=== PATIENT | male | born 1995 | race Caucasian/White ===

== ENCOUNTER 2022-04-30 09:07 | Emergency (ER) | payer OTHER, SELFPAY ==
[2022-04-30 09:16] VITALS: BP 132/84; PULSE 88; RESP 18; TEMP 36.6; O2SAT 99; BMI 21.4
--- NOTE | 2022-04-30 09:39 | ED_ITS ---
HPI - Eye Problem General Chief complaint: Eye Problems Stated complaint: FO in L eye Time Seen by Provider: 04/30/22 09:27 Source: patient Mode of arrival: ambulatory Limitations: no limitations History of Present Illness HPI Narrative: 26 y/o male presents to the ER for evaluation of a ?left eye foreign body x 1 week. 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 He attempted to remove the foreign body with an eye wash station, but reports that he feels as though the object is still in his eye. He states that he has had trouble seeing at nighttime since the incident. He also admits to having photophobia. Denies any eye discharge and itchiness. No other complaints or concerns at this time. MD chief complaint: eye pain, eye injury and foreign body Onset (ago): week(s) Onset description: sudden Duration: constant Location: left eye Eye Symptoms: redness, blurry vision and photophobia Place: work Mechanism: occurred while hammering/grinding Severity: moderate If Pain, Quality: aching Associated symptoms: none Treatments Prior to Arrival: none Related Data Patient tetanus UTD: No (Given tetanus immunization today.) Previous Rx's Medication Instructions Recorded sulfacetamide sodium 10 % eye drops 1 drp ophthalmic (eye) Q4H #15 mL 04/30/22 Allergies Allergy/AdvReac Type Severity Reaction Status Date / Time No Known Allergies Allergy Verified 04/30/22 09:28 Review of Systems Review of Systems: Yes all other systems are reviewed and are negative [facility] Social History Social History Advance Directives: No Advance Directives Information Provided: No Physical Exam Vital Signs: Vital Signs: Last Vital Signs Temp 98 F 04/30/22 09:16 Pulse 88 04/30/22 09:16 Resp 18 04/30/22 09:16 BP 132/84 04/30/22 09:16 Pulse Ox 99 04/30/22 09:16 O2 Del Method 04/30/22 09:16 BMI result Body Mass Index 21.4 Appearance: Alert. Oriented X3. No acute distress. HEENT: Left eye conjunctiva is injected with one visible punctate black foreign body noted overlying the iris at the 9 o'clock, with ?foreign body vs corneal abrasion at the 3 o'clock position. +Uptake of fluorescein over the iris at the 9 o'clock position post foreign body removal. No corneal ulcerations or rust rings visualized. EOMI, PERRL bilaterally. CVS: Normal heart rate and rhythm. Pulses normal. Respiratory: No respiratory distress. Skin: Skin warm and dry. Normal skin color. Normal skin turgor. No rashes. Extremities: Normal inspection x 4. Neuro: Oriented X 3. Medications Administered Discontinued Medications Generic Name Dose Route Start Last Admin Trade Name Freq PRN Reason Stop Dose Admin Diphtheria/Tetanus/Acell Pertussis 0.5 ml 04/30/22 10:07 04/30/22 10:12 Diphth,Pertus(Acell),Tet Adult 0.5 Ml Syringe IM 04/30/22 10:08 0.5 ml .ONCE ONE Administration Fluorescein Sodium 1 strip 04/30/22 09:28 04/30/22 10:13 Fluorescein Sodium Strip EYE-LEFT 04/30/22 09:29 1 strip ONCE ONE Administration Tetracaine HCl 1 drop 04/30/22 09:28 04/30/22 10:13 Tetracaine Hcl/Pf 0.5% Oph Grace 4 Ml Drops EYE-LEFT 04/30/22 09:29 1 drop ONCE ONE Administration Medical Decision Making Medical Decision Making MDM Narrative: 26 y/o M presenting today for evaluation of ?left eye foreign body x 1 week. Foreign body at 9 o'clock position removed with irrigation and needle. Foreign body vs corneal abrasion noted at the 3 o'clock position. Patient tolerated procedure well without any complications or concerns. Will cover patient with antibiotic drops and advised to follow up with ophthalmology in 1 week if symptoms do not improve. Tetanus immunization updated prior to discharge. Patient understands and agrees with plan. Differential Diagnosis Differential Diagnoses: The differential diagnosis associated with the presentation includes foreign body, corneal abrasion, iritis, conjunctivitis Prescription Management I considered prescription management with: Antibiotic Procedures FB Removal Eye Time Out performed: Yes Location: eye (L) Topical anesthetic used: tetracaine Foreign body: other (unknown) Evidence of corneal penetration: No Technique: irrigation, cotton tip swab and needle Procedure performed under: direct visualization with magnification Post-procedure medication: ophthalmic antibiotic (on discharge) and topical anesthetic Patient tolerated procedure: well Critical Care Time Critical Care Time Critical Care Time: No Discharge Plan Discharge Clinical Impression: Corneal abrasion, Foreign body in eye Patient Disposition: Home, Self-Care Instructions: Corneal Abrasion (ED), Eye Foreign Body (ED) Additional Instructions: Use full course of antibiotic eye drops for the next week. Do not rub your left eye. If your symptoms do not improve after one week, please follow up with the referred eye physician, call to make an appointment. If you develop new or worsening symptoms call 911 or come back to the ER for further evaluation. Prescriptions: New sulfacetamide sodium 10 % drops 1 drp ophthalmic (eye) Q4H Qty: 15 0RF Referrals: Rasta Deleon [Physician] - (Foreign body & Corneal abrasion L eye) Interventions: ED Discharge Assessment Last Done: 04/30/22 10:18 Discharge Date/Time: 04/30/22 10:18
[2022-04-30] MEDS: Diphth,Pertus(ACell),Tet Adult 0.5 ML SYRINGE IM (10:12)
[2022-04-30] MEDS: Fluorescein Sodium STRIP 1 STRIP EYE-LEFT (10:13)
[2022-04-30] MEDS: Tetracaine HCl/PF 0.5% Oph Sol 4 ML DROPS 1 DROP EYE-LEFT (10:13)
== END 2022-04-30 10:18 | disposition home or self-care (01) ==
PROVIDERS: Emergency Provider Emergency Medicine
DX: T15.02XA Foreign body in cornea, left eye, initial encounter (principal); S05.02XA Injury of conjunctiva and corneal abrasion without foreign body, left eye, initial encounter; W20.8XXA Other cause of strike by thrown, projected or falling object, initial encounter; Y93.H3 Activity, building and construction; Y92.89 Other specified places as the place of occurrence of the external cause; Y99.0 Civilian activity done for income or pay
CPT/HCPCS: 65220; 90471; 90715; 99282; 99284

== ENCOUNTER 2022-05-03 21:19 | Emergency (ER) | payer OTHER, SELFPAY ==
--- NOTE | ~2022-05-03 | XR_ITS ---
EXAMINATION: XR WRIST, LEFT XR HAND, LEFT CLINICAL INFORMATION: Injury. Pain. COMPARISON: None available. TECHNIQUE: 3 views of left hand and wrist. Cone-down lateral view of the left thumb FINDINGS: LEFT WRIST: The bones and soft tissues are normal. No fracture. Alignment is anatomic. Joint spaces are maintained. No erosions or soft tissue calcifications. LEFT HAND: There is fracture through the midshaft of the proximal phalanx of the left thumb. Fracture is comminuted. There is a fracture line extending longitudinally to the periarticular bone at the metacarpal phalangeal joint. There is dorsal angulation of the distal fracture fragment. No other fracture. No dislocation. XR/XR hand wrist LT IMPRESSION: 1. Normal left wrist. 2. Comminuted transverse fracture of the proximal phalanx of the thumb.
[2022-05-03 21:22] VITALS: BP 130/82; PULSE 74; RESP 18; TEMP 36.6; O2SAT 98; BMI 23.3
--- NOTE | 2022-05-03 22:20 | ED_ITS ---
HPI - Extremity Problem General Chief complaint: Extremity Injury, Upper Stated complaint: Hand swelling/ Work Inj Time Seen by Provider: 05/03/22 22:18 Source: patient Mode of arrival: ambulatory Limitations: no limitations History of Present Illness HPI Narrative: patient while at work got left hand jammed while unloading a truck and piece of wood fell on it a week ago at the significant swelling of the fingers have improved and have good movements patient still has swelling in the left thumb and difficult to move no other injuries Related Data Previous Rx's Medication Instructions Recorded sulfacetamide sodium 10 % eye drops 1 drp ophthalmic (eye) Q4H #15 mL 04/30/22 Allergies Allergy/AdvReac Type Severity Reaction Status Date / Time No Known Allergies Allergy Verified 05/03/22 21:24 Review of Systems Review of Systems: Yes all other systems are reviewed and are negative [facility] Social History Social History Advance Directives: No Physical Exam Vital Signs: Vital Signs: Last Vital Signs Temp 97.6 F 05/03/22 22:38 Pulse 80 05/03/22 22:38 Resp 16 05/03/22 22:38 BP 122/77 05/03/22 22:38 Pulse Ox 96 05/03/22 22:38 O2 Del Method 05/03/22 22:38 BMI result Body Mass Index 23.3 Const: General: healthy appearing, comfortable and no acute distress Extrem: Hand/finger images: 1. Swelling at the proximal phalanx nontender limited range of flexion because of swelling normal strength neurovascular intact Medical Decision Making Medical Decision Making MDM Narrative: Patient left thumb contusion x-ray positive of proximal left thumb fracture vane ent has good strength but limited range of movement in his left thumb because of swelling. Although no significant pain, patient advised to follow orthopedic patient left without the thumb spica splint advised to come back patient was called home to come back to the ER for the splint Radiology Impression Discussion of test interpretation with radiology: I have reviewed the radiologist's reading. Radiologist Impression: XR/XR hand wrist LT IMPRESSION: 1.? Normal left wrist. 2.? Comminuted transverse fracture of the proximal phalanx of the thumb. Discharge Plan Discharge Clinical Impression: Fracture of thumb, left, closed, Contusion of left thumb Patient Disposition: Home, Self-Care Additional Instructions: Thumb spica splint as prescribed Follow-up with orthopedics as advised Prescriptions: No Action sulfacetamide sodium 10 % drops 1 drp ophthalmic (eye) Q4H Qty: 15 0RF Referrals: Solitario Narvaez MD [Physician] - 3 days Interventions: ED Discharge Assessment Last Done: 05/03/22 22:44 Discharge Date/Time: 05/03/22 22:45
[2022-05-03 22:38] VITALS: BP 122/77; PULSE 80; RESP 16; TEMP 36.4; O2SAT 96
[2022-05-04 05:50] VITALS: BP 113/72; PULSE 78; RESP 16; TEMP 36.9; O2SAT 100
== END 2022-05-03 22:45 | disposition home or self-care (01) ==
PROVIDERS: Emergency Provider Internal Medicine
DX: S62.502A Fracture of unspecified phalanx of left thumb, initial encounter for closed fracture (principal); S60.012A Contusion of left thumb without damage to nail, initial encounter; M25.532 Pain in left wrist; Y29.XXXA Contact with blunt object, undetermined intent, initial encounter; Y93.9 Activity, unspecified; Y92.9 Unspecified place or not applicable; Y99.0 Civilian activity done for income or pay
CPT/HCPCS: 73110; 73130; 99282; 99283

== ENCOUNTER 2022-05-04 05:24 | Emergency (ER) | payer OTHER, SELFPAY ==
[2022-05-04 05:37] VITALS: BMI 23.3
--- NOTE | 2022-05-04 05:43 | ED.EXTPRO ---
HPI - Extremity Problem General Chief complaint: Extremity Injury, Upper Stated complaint: Hand pain Time Seen by Provider: 05/04/22 05:35 Source: patient Mode of arrival: ambulatory Limitations: no limitations History of Present Illness HPI Narrative: Patient called back to come to the ER for the splint placement for his left thumb fracture was seen few hours earlier as he got his left thumb jammed and piece of wood fell on it about 1 week ago at work Related Data Previous Rx's Medication Instructions Recorded sulfacetamide sodium 10 % eye drops 1 drp ophthalmic (eye) Q4H #15 mL 04/30/22 Allergies Allergy/AdvReac Type Severity Reaction Status Date / Time No Known Allergies Allergy Verified 05/03/22 21:24 Review of Systems Review of Systems: Yes all other systems are reviewed and are negative [facility] Social History Social History Advance Directives: No Physical Exam Vital Signs: Vital Signs: BMI result Body Mass Index 23.3 Extrem: Hand/finger images: 1. Swelling of the left thumb with limited range of movement neurovascular intact nontender Medical Decision Making Medical Decision Making MDM Narrative: Patient recalled to get the splint placed left thumb spica splint was placed advised to follow with orthopedic Procedures Orthopedic Splinting/Casting Injury #1: Side: left Upper Extremity Injury Location: hand Upper Extremity Immobilizer: thumb spica Discharge Plan Discharge Clinical Impression: Fracture of thumb, left, closed Patient Disposition: Home, Self-Care Instructions: Thumb Fracture (ED) Additional Instructions: With the splint as applied Follow-up with orthopedics Prescriptions: No Action sulfacetamide sodium 10 % drops 1 drp ophthalmic (eye) Q4H Qty: 15 0RF Referrals: Solitario Narvaez MD [Physician] - 3 days
--- NOTE | 2022-05-04 05:58 | PC.NURSE ---
pt returned to have sling placed upon being called back in
--- NOTE | 2022-05-04 05:59 | PC.NURSE ---
Discharge instructions given/explained to pt No apparent distress aox4 Ambulates safely/independently
== END 2022-05-04 06:04 | disposition home or self-care (01) ==
PROVIDERS: Emergency Provider Internal Medicine
DX: M79.642 Pain in left hand (principal); S62.512A Displaced fracture of proximal phalanx of left thumb, initial encounter for closed fracture; W20.8XXA Other cause of strike by thrown, projected or falling object, initial encounter; Y93.9 Activity, unspecified; Y92.69 Other specified industrial and construction area as the place of occurrence of the external cause; Y99.9 Unspecified external cause status
CPT/HCPCS: 29125; 99284

== ENCOUNTER 2022-05-05 14:38 | Outpatient (REF) | payer OTHER, SELFPAY ==
--- NOTE | ~2022-05-05 | XR_ITS ---
EXAMINATION: XR HAND, LEFT CLINICAL INFORMATION: Pain COMPARISON: Hand radiographs 05/03/2022 TECHNIQUE: 3 views of the hand FINDINGS: Redemonstration of a displaced fracture of the first proximal phalanx involving the mid diaphysis. No jocelynn bridging bony callus formation or periosteal reaction. Alignment is similar to prior. Joint spaces are maintained. Soft tissue swelling about the first digit. Soft tissues are unremarkable. XR/XR hand LT min 3V IMPRESSION: Redemonstration of a displaced fracture of the first proximal phalanx involving the mid diaphysis. No jocelynn bridging bony callus formation or periosteal reaction. Alignment is similar to prior. Soft tissue swelling about the first digit.
== END 2022-05-05 14:39 | disposition home or self-care (01) ==
LOC: HO.HOSX 14:38
PROVIDERS: Visit Provider Physician Assistant
DX: S62.502A Fracture of unspecified phalanx of left thumb, initial encounter for closed fracture (principal)
CPT/HCPCS: 73130; 99202

== ENCOUNTER 2022-05-07 07:43 | Day surgery (SDC) | payer OTHER, SELFPAY ==
--- NOTE | 2022-05-06 12:27 | P.CONAN_ITS ---
Documented by User: Salma Rizo NP 05/06/22 12:28 HPI - Anesthesia Eval Consult details Narrative: 26yo M for left thumb Finger Fx ORIF, closed vs open reduction [facility] Active Problems Active Problems: All Active Problems (Updated 05/05/22 @ 16:00 by Acacia Prabhakar) Fracture of phalanx of left thumb (Acute) Contusion of left thumb (Acute) Surgical History Surgical History (Updated 05/07/22 @ 07:48 by Adriana Walker) H/O elbow surgery Social History Social History (Updated 05/05/22 @ 15:41 by Nelsy Mcclain [facility]) Patient Tobacco Use Status: Former Tobacco user Tobacco use type: Cigarette Years Smoked: 6 Smoked in Last 30 Days: No Use of substances other than those prescribed or required for medical reasons: Yes Substance Use Frequency: Daily Are you DNR?: No Advance Directives: No Advance Directives Information Provided: Yes Current occupational status: employed Current occupation: [employer] Meds Allergies Allergy/AdvReac Type Severity Reaction Status Date / Time No Known Allergies Allergy Verified 05/07/22 07:49 Exam Exam Date and Time: May 06, 20221226 Assessment and Plan Assessment Anesthesia Assessment: Chart Reviewed Documented by User: April Toledo MD 05/07/22 10:55 HPI - Anesthesia Eval Consult details Narrative: 26yo M for left thumb Finger Fx ORIF, closed vs open reduction history of ketamine abuse, smoking and vaping u tox positive for marihuana last ketamine use per his report 2 weeks ago [facility] Family History Family history of problems with anesthesia: No Surgical History Surgical History (Updated 05/07/22 @ 07:48 by Adriana Walker) H/O elbow surgery History of Problems with Anesthesia: No Social History Social History (Updated 05/05/22 @ 15:41 by Nelsy Mcclain CMA) Patient Tobacco Use Status: Former Tobacco user Tobacco use type: Cigarette Years Smoked: 6 Smoked in Last 30 Days: No Use of substances other than those prescribed or required for medical reasons: Yes Substance Use Frequency: Daily Are you DNR?: No Advance Directives: No Advance Directives Information Provided: Yes Current occupational status: employed 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 Discussed Final Anesthetic Review Family History of Problems with Anesthesia: No History of Problems with Anesthesia: No ASA Class: II Final Preanesthetic Review: No Changes in Pt Med Stat, Meds/Allgs Chart Reviewed, Consent Obtained/Reviewed and Anes Risks/Benef Reviewed Patient Risk: Intermediate Procedure Risk: Low Anesthetic Plan Anesthetic Plan: GA Disposition: Standard PACU
--- NOTE | ~2022-05-07 | FL_ITS ---
EXAMINATION: XR FLUOROSCOPY WITH IMAGES CLINICAL INFORMATION: Fracture first proximal phalanx. Orthopedic reduction. COMPARISON: Radiographs left hand 05/05/2022. TECHNIQUE: Fluoroscopy Supervised By: Dr. Nadia Mcintyre. Fluoroscopy Time: 25 seconds. Cumulative Dose: 0.637 mGy. DAP: 0.0385 Gycm2. Images: 5. FINDINGS: There is a transverse fracture of first proximal phalanx at mid shaft. Fracture is reduced with 2 orthopedic pins. Fracture fragments are in near-anatomic alignment. Hardware intact. No dislocation. FL/FL guidance in OR IMPRESSION: Status post open reduction internal fixation first proximal phalanx fracture.
[2022-05-07 07:49] VITALS: BMI 23.3
[2022-05-07 08:07] VITALS: BP 115/67; PULSE 77; RESP 16; TEMP 37.2; O2SAT 99
[2022-05-07] MEDS: Lactated Ringers 1,000 ML 100 ML IVCONT (08:17)
[2022-05-07 09:57] LABS: Amphetamine Screen Urine Not Detected (Not Detect); Barbiturates, Urine Not Detected (Not Detect); Benzodiazepines Screen Urine Not Detected (Not Detect); Cannabinoid Screen Urine POSITIVE (Not Detect); Cocaine Screen Urine Not Detected (Not Detect); Fentanyl, urine Not Detected (Not Detect); Opiate Screen Urine Not Detected (Not Detect); Phencyclidine Screen Urine Not Detected (Not Detect)
--- NOTE | 2022-05-07 10:05 | MHC.SHP ---
Pre-Procedural Eval Section A Date of Service: 05/07/22 The patient is an INPATIENT: No Changes since office visit: No Cold of Flu in the past 2 weeks, No New Medical Problems, No Changes in Medication and No Patient answered all questions The History & Physical has been completed within 30 days and I have reviewed it.: Yes Section B Chief Complaint: Left thumb proximal phalanx fracture Allergies: Allergies Allergy/AdvReac Type Severity Reaction Status Date / Time No Known Allergies Allergy Verified 05/07/22 07:49 Plan I have reviewed the history and physical and performed a pertinent physical examination on my patient. No changes have occurred unless specified. Time Spent With Patient Time: Total time managing care of this patient today ____ minutes.
--- NOTE | 2022-05-07 10:06 | W.PM.OPN ---
Operative Note Operative Note Date of Service: 05/07/22 Narrative: Operative Note Narrative: Preop diagnosis: 1. Left thumb proximal phalanx shaft fracture Postop diagnosis: Same Procedure: 1. left thumb proximal phalanx CRPP Surgeon: Nadia Mcintyre MD Anesthesia: General Anesthesia Findings: finger fracture Implants: 0.045 K-wires times 1, 0.054 K-wire x1 Tourniquet time: None EBL: Minimal Specimen: None Drains: None Complications: None Disposition: Brought to the recovery room in stable condition Plan: Follow-up in 10-14 days for a wound check, postop radiographs and for placement in a short-arm thumb spica cast or splint Anticipate K-wire removal in 4 weeks based on interval bony healing Educate the patient that full fracture healing anticipated in approximately 8-12 weeks. Indications: The patient is 26 years old with a left thumb proximal phalanx fracture . The risks and benefits of operative treatment, including but not limited to risk of damage to blood vessels, nerves, tendons, infection, recurrence, delayed or nonunion of fracture, persistent pain or numbness, incomplete resolution of preoperative symptoms, or need for further surgery were discussed with the patient and they wished to proceed with surgery. Procedure: Once consent was obtained patient was brought back to the operating suite and placed in the operating table in a supine position. Perioperative antibiotics and general anesthesia was administered by the anesthesia team. A tourniquet was applied to the proximal aspect of the left upper extremity and the limb was prepped and draped in a standard surgical fashion. Tourniquet was not inflated during the case. The FluoroScan was used during the case to assist with our fracture reduction and placement of all implants. Prior to reduction, he was noted to have a fracture through the shaft of the proximal phalanx that was apex volar and with at least 60-70 degrees of deformity. A closed reduction was performed on the patient's left thumb proximal phalanx fracture. I placed a 0.054 K-wire through the radial base of the left thumb proximal phalanx. Holding our proximal phalanx fracture in a reduced position, I then advanced the K-wire distally across the fracture site and into the distal aspect of the proximal phalanx. I then placed a 0.045 K-wire through the ulnar base of the proximal phalanx. This was similarly advanced distally across the fracture site and into the distal aspect of the proximal phalanx. Fracture alignment was assessed for both angular and rotational malalignment. Once satisfied with our fracture reduction and implant placement, the K-wires were bent and cut short and pin caps applied. Final fluoroscopic images were then obtained. The wounds were copiously irrigated with normal saline. a digital block was performed using some 0.5% plain ropivacaine. A Sterile dressing and Short-arm thumb spica splintextending to the forearm was applied. The patient appears to have tolerated the procedure well and with no complications. All digits were well vascularized at the conclusion of the case.
[2022-05-07 11:25] VITALS: BP 115/67; PULSE 82; RESP 13; TEMP 36.1; O2SAT 97
[2022-05-07 11:30] VITALS: BP 109/69; PULSE 70; RESP 14; O2SAT 97
[2022-05-07 11:35] VITALS: BP 107/65; PULSE 73; RESP 15; O2SAT 98
[2022-05-07 11:40] VITALS: BP 107/70; PULSE 71; RESP 16; TEMP 36.2; O2SAT 99
== END 2022-05-07 12:36 | disposition home or self-care (01) ==
PROVIDERS: Anesthesiology; Visit Provider Orthopaedic Surgery
PROC: (CPT 26727; principal; 2022-05-07 08:50)
DX: S62.512A Displaced fracture of proximal phalanx of left thumb, initial encounter for closed fracture (principal); R20.0 Anesthesia of skin; R20.2 Paresthesia of skin; W23.0XXA Caught, crushed, jammed, or pinched between moving objects, initial encounter; Y93.89 Activity, other specified; Y92.69 Other specified industrial and construction area as the place of occurrence of the external cause; Y99.0 Civilian activity done for income or pay; Z79.899 Other long term (current) drug therapy; F17.210 Nicotine dependence, cigarettes, uncomplicated; F12.90 Cannabis use, unspecified, uncomplicated
CPT/HCPCS: 26727; 80307; J0690; J1100; J1885; J2405; J2795; J3010

== ENCOUNTER 2022-05-20 10:18 | Outpatient (REF) | payer OTHER, SELFPAY ==
--- NOTE | ~2022-05-20 | XR_ITS ---
EXAMINATION: XR HAND, LEFT CLINICAL INFORMATION: Fracture COMPARISON: Previous x-ray most recent April 2022 TECHNIQUE: PA, lateral, and oblique views of the left hand. FINDINGS: There are 2 K wires or pins across the fracture of the proximal phalanx of the thumb. Hardware is similar to fluoroscopy exam. Fracture line still seen and alignment is unchanged. Minimal callus formation. Osteopenia. Soft tissue swelling. XR/XR hand LT min 3V IMPRESSION: ORIF of fracture of the proximal phalanx of the thumb.
== END 2022-05-20 10:19 | disposition home or self-care (01) ==
LOC: HO.HOSX 10:18
PROVIDERS: Visit Provider Orthopaedic Surgery
DX: S62.502D Fracture of unspecified phalanx of left thumb, subsequent encounter for fracture with routine healing (principal)
CPT/HCPCS: 73130

== ENCOUNTER 2022-06-08 13:38 | Outpatient (REF) | payer OTHER, SELFPAY | END 2022-06-08 13:39 | disposition home or self-care (01) | LOC: HO.HOSX 13:38 | PROVIDERS: Visit Provider Orthopaedic Surgery | DX: Z13.89 Encounter for screening for other disorder (principal) ==

== ENCOUNTER 2022-06-10 09:09 | Outpatient (REF) | payer OTHER, SELFPAY ==
--- NOTE | ~2022-06-10 | XR_ITS ---
EXAMINATION: XR HAND, LEFT CLINICAL INFORMATION: Left hand pain. COMPARISON: None available. TECHNIQUE: PA, lateral, and oblique views of the left hand. An indicator arrow points to the first digit. FINDINGS: 2 K wires are seen transfixing a fracture of the proximal phalanx of the first digit with good anatomic alignment. The remainder the digits are intact. The carpal bones are normally aligned. The distal radius and ulna are intact. There is mild to moderate soft tissue swelling in the first digit. XR/XR hand LT min 3V IMPRESSION: Mild to moderate soft tissue swelling in the first digit without acute underlying osseous or hardware abnormality. Overall good anatomic alignment with evidence for healing.
== END 2022-06-10 09:10 | disposition home or self-care (01) ==
LOC: HO.HOSX 09:09
PROVIDERS: Visit Provider Orthopaedic Surgery
DX: S62.502D Fracture of unspecified phalanx of left thumb, subsequent encounter for fracture with routine healing (principal)
CPT/HCPCS: 73130

== ENCOUNTER 2022-07-08 10:56 | Outpatient (REF) | payer OTHER, SELFPAY ==
--- NOTE | ~2022-07-08 | XR_ITS ---
EXAMINATION: XR HAND, LEFT CLINICAL INFORMATION: Fracture COMPARISON: Previous x-ray most recent 06/10/2022 TECHNIQUE: PA, lateral, and oblique views of the left hand. FINDINGS: The 2 K wires or pins in the thumb have been removed. There is a healing fracture of the proximal phalanx of the thumb. Alignment appears unchanged. No other fracture. Joint spaces are normal. Soft tissues are normal. XR/XR hand LT min 3V IMPRESSION: Healing fracture of the proximal phalanx of the thumb.
== END 2022-07-08 10:57 | disposition home or self-care (01) ==
LOC: HO.HOSX 10:56
PROVIDERS: Visit Provider Orthopaedic Surgery
DX: S62.502D Fracture of unspecified phalanx of left thumb, subsequent encounter for fracture with routine healing (principal); M79.642 Pain in left hand; X58.XXXD Exposure to other specified factors, subsequent encounter
CPT/HCPCS: 73130

== ENCOUNTER 2023-09-16 13:36 | Emergency (ER) | payer OTHER, SELFPAY ==
--- NOTE | ~2023-09-16 | XR_ITS ---
EXAMINATION: XR forearm RT 2V, XR humerus RT CLINICAL INFORMATION: Reason for Exam overlying cellulitis COMPARISON: None. TECHNIQUE: 2 view series right forearm; 2 view series right humerus FINDINGS: Right forearm: No fractures or erosive osseous lesions. Intact radial head. Soft tissue prominence along the dorsal aspect of the forearm. No soft tissue emphysematous changes. Right humerus: Focal soft tissue emphysematous changes and soft tissue prominence is present along the radial aspect of the arm adjacent to the distal one third of the humerus. The visualized right ribs and lung are normal in appearance. No erosive osseous lesions identified. No fractures noted. XR/XR humerus RT IMPRESSION: *Soft tissue inflammatory changes and soft tissue emphysema within the right upper extremity adjacent to the distal one third of the humerus. Additional soft tissue inflammatory changes without soft tissue emphysema are present along the dorsal aspect of the right forearm. No embedded radiopaque foreign bodies. No findings suspicious for osteomyelitis.
--- NOTE | ~2023-09-16 | XR_ITS ---
EXAMINATION: XR forearm RT 2V, XR humerus RT CLINICAL INFORMATION: Reason for Exam overlying cellulitis COMPARISON: None. TECHNIQUE: 2 view series right forearm; 2 view series right humerus FINDINGS: Right forearm: No fractures or erosive osseous lesions. Intact radial head. Soft tissue prominence along the dorsal aspect of the forearm. No soft tissue emphysematous changes. Right humerus: Focal soft tissue emphysematous changes and soft tissue prominence is present along the radial aspect of the arm adjacent to the distal one third of the humerus. The visualized right ribs and lung are normal in appearance. No erosive osseous lesions identified. No fractures noted. XR/XR forearm RT 2V IMPRESSION: *Soft tissue inflammatory changes and soft tissue emphysema within the right upper extremity adjacent to the distal one third of the humerus. Additional soft tissue inflammatory changes without soft tissue emphysema are present along the dorsal aspect of the right forearm. No embedded radiopaque foreign bodies. No findings suspicious for osteomyelitis.
[2023-09-16 13:36] VITALS: BP 127/90; PULSE 98; RESP 17; TEMP 36.8; O2SAT 100; BMI 22.6
--- NOTE | 2023-09-16 13:38 | ED_ITS ---
HPI - Skin/Abscess/Foreign Bdy General Chief complaint: Wound/Laceration Stated complaint: Cellulitis Time Seen by Provider: 09/16/23 16:02 Source: patient Mode of arrival: ambulatory Limitations: no limitations History of Present Illness ED Provider: Dr. Jocelin Beltre HPI narrative: Patient comes to the emergency room complaining of an abscess growing in the bicipital area of the right arm. Patient states that it has been growing for several days, patient injected himself with ketamine. Patient states that when he noticed that an abscess was growing, patient will have a sewing needle, poke the abscess and expressed a large amount of pus. However, patient states that the erythema keeps spreading around the arm. Patient states that after he express a large amount of pus, he was able to move his arm better, flex the biceps. Patient denies any pain in his hand wrist or forearm. Related Data Previous Rx's ?Medication ?Instructions ?Recorded sulfacetamide sodium 10 % eye drops 1 drp ophthalmic (eye) Q4H #15 mL 04/30/22 cephalexin 500 mg capsule 500 mg PO BID #20 caps 09/16/23 doxycycline hyclate 100 mg capsule 100 mg PO BID #20 caps 09/16/23 ibuprofen 600 mg tablet 600 mg PO QID PRN fever or pain 09/16/23 #30 tabs Allergies Allergy/AdvReac Type Severity Reaction Status Date / Time No Known Allergies Allergy Verified 09/16/23 13:42 Review of Systems 2 Review of Systems: Constitutional : No Weight loss, No Fever, No Chills, No Night Sweats, No Fatigue, No Malaise ENT/Mouth : No Hearing loss, No Ear Pain, No Nasal Congestion, No Sinus Pain, No Hoarseness, No sore throat, No Rhinorrhea, No Swallowing Difficulty Eyes: No Eye Pain, No Swelling, No Redness, No Foreign Body, No Discharge, No Vision Changes Cardiovascular : No Chest Pain, No SOB, No Dyspnea on Exertion, No Orthopnea, No Edema, No Palpitations Respiratory : No Cough, No Sputum, No Wheezing, No Smoke Exposure, No Dyspnea Gastrointestinal : No Nausea, No Vomiting, No Diarrhea, No Constipation, No abdominal Pain, No Hematochezia, No Melena Genitourinary : no irregular bleeding, No Dysuria, No Urinary Frequency, No Hematuria, No Urinary Incontinence, No Urgency, No Flank Pain, No Urinary Flow Changes, No Hesitancy Musculoskeletal : No joint pain, No Myalgias, No Joint Swelling Skin : Complaining of a growing abscess in the right biceps and erythema spreading Neuro : No Weakness, No Numbness, No Paresthesias, No Loss of Consciousness, No Dizziness, No Headache Psych : No Anxiety/Panic, No Depression, No SI/HI/AH/VH, No Social Issues, Heme/Lymph: No Bruising, No Bleeding,No Lymphadenopathy Endocrine : No Polyuria, No Polydipsia, No Temperature Intolerance [facility] Past Medical History Medical History IV drug user Surgical History H/O elbow surgery Social History Social History Patient Tobacco Use Status: Former Tobacco user Tobacco use type: Cigarette Years Smoked: 6 Advance Directives: No Advance Directives Information Provided: No Do you have a plan to hurt others: No Plan Current occupational status: employed 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 Oriented X3. No acute distress. Eyes: Pupils equal, round and reactive to light. ENT: Pharynx normal. Neck: Normal inspection. Neck supple. No lymph nodes noted. No crepitus CVS: Normal heart rate and rhythm. Pulses normal. Normal S1 and S2 Respiratory: No respiratory distress. Breath sounds normal. No Wheezing. No rales Abdomen: Soft and nontender. No rigidity. No distention. Skin: There is a large abscess in the right biceps, erythema spreads all the way down to the middle of the forearm and close to the right axilla Extremities: No lower extremity edema. No Lacerations. No Rash Neuro: Oriented X 3. No motor deficit. No sensory deficit. Moving all extremities. No slurred speech. CN 2 through 12 grossly intact Psych: calm, cooperative, normal affect Course Course Course Narrative: This is a Rapid Medical Examination (RME) performed by Satinder Rose PA-C in triage. Full HPI, ROS, assessment and treatment plan per primary provider in the Main ED. 28 yo male hx of IVDU, admits to relapsing and injecting ketamine a few days ago here for evel of right UE infection/ abscess. reports infection around injection site. self-lanced the area with a needle resulting in purulent discharge. seen at this morning, advised to come to ED. not seeking detox. + noted swelling/ erythema to right bicep extending distally to mid-forearm. fluctuant w/ pointing. FROM intact to right elbow, wrist and all digits. Plan: labs, imaging, lactic, bc Medications Administered Discontinued Medications Generic Name Dose Route Start Last Admin Trade Name Jayant PRN Reason Stop Dose Admin Doxycycline Monohydrate 100 mg 09/16/23 16:14 09/16/23 16:28 Doxycycline Monohydrate 100 Mg Capsule PO 09/16/23 16:15 100 mg ONCE ONE Administration Ceftriaxone Sodium 1 gm/ 50 mls @ 100 mls/hr 09/16/23 16:14 09/16/23 17:00 Sodium Chloride IV 09/16/23 16:43 Infused ONCE ONE Infusion Lidocaine/Epinephrine 30 ml 09/16/23 16:10 09/16/23 16:29 Lidocaine Hcl 1%/Epi 1:100,000 20 Ml Vial INFILTRATI 09/16/23 16:11 30 ml ONCE ONE Administration Morphine Sulfate 2 mg 09/16/23 16:15 09/16/23 16:29 Morphine Sulfate 2 Mg/Ml Cartridge IVPUSH 09/16/23 16:16 2 mg ONCE ONE Administration Protocol Medical Decision Making Medical Decision Making MDM Narrative: -I discussed with the patient that we will need to drain this abscess. Patient agreeable. -patient requesting that we do not admit him. Patient is willing to get antibiotics here in the ED -patient tolerated well the abscess drainage, large amount of pus was extracted -patient was given IV ceftriaxone, p.o. doxycycline, 2 mg of morphine. -patient instructed that if the redness spreads beyond the marked line or if he develops any fever chills or no improvement, he needs to return. -patient declined detox/care team consult -to the incision and drainage and packing, patient felt much better. Patient able to flex and extend all fingers wrist and elbow. Normal capillary refill, no numbness or tingling. Differential Diagnosis Differential Diagnoses: The differential diagnosis associated with the presentation includes (Cellulitis, abscess) Admission/Observation Consideration of admission/observation: Escalation of care including admission/observation considered (Admission was offered, patient declined) Lab Data MDM Lab Attestation statement: I reviewed the patient's lab results. 09/16/23 14:49 09/16/23 14:49 Labs: Lab Results 09/16/23 Range/Units 14:49 WBC 9.7 (4.8-10.8) X10*3/uL RBC 4.58 L (4.60-5.80) X10*6/uL Hgb 14.3 (14.0-18.0) g/dl Hct 41.2 L (42.0-52.0) % MCV 90.0 (80.0-98.0) fL MCH 31.2 (27.0-33.0) pg MCHC 34.7 (31.0-36.0) g/dl RDW 12.3 (11.0-16.0) % Plt Count 248 (160-400) X10*3/uL MPV 10.3 (9.4-12.4) fL Immature Gran % (Auto) 0.3 (0.0-0.4) % Neut % (Auto) 72.4 (45-73) % Lymph % (Auto) 15.5 L (20-40) % Stone % (Auto) 10.4 (2-11) % Eos % (Auto) 1.1 (0-4) % Baso % (Auto) 0.3 (0-2) % Lymph # (Auto) 1.5 (1.2-4.9) X10*3/uL Stone # (Auto) 1.0 (0.1-1.2) X10*3/uL Eos # (Auto) 0.1 (0.0-0.4) X10*3/uL Baso # (Auto) 0.0 (0.0-0.2) X10*3/uL Abs Immat Gran (auto) 0.03 (0.00-0.03) X10*3/uL Absolute Neuts (auto) 7.1 (2.0-8.3) x10*3/uL Absolute Nucleated RBC 0.000 (0.0-0.012) X10*3/uL Nucleated RBC % (auto) 0.0 (0.0-0.2) /100WBC ESR 53 H (0-15) MM/HR Sodium 140 (135-145) mmol/L Potassium 4.0 (3.3-5.1) mmol/L Chloride 103 (96-108) mmol/L Carbon Dioxide 29 (22-29) mmol/L Anion Gap 12 (12-20) BUN 9 (9-16) mg/dL Creatinine 0.79 (0.5-1.4) mg/dL Estim Creat Clear Calc 123.9 Estimated GFR > 60 Random Glucose 99 (60-115) mg/dL Lactic Acid 1.3 (0.5-2.0) mmol/L Calcium 9.7 (8.4-10.2) mg/dL Magnesium 2.3 (1.6-2.6) mg/dL Total Bilirubin 0.3 (0.0-1.0) mg/dL AST 33 (5-37) U/L ALT 36 (0-40) U/L Alkaline Phosphatase 74 (39-117) U/L C-Reactive Protein 7.71 H (< or = 0.50) mg/dL Total Protein 7.7 (6.5-8.0) g/dL Albumin 4.2 (3.5-5.0) g/dL Urine Opiates Screen Not Detected (Not Detect) Ur Buprenorphine Scrn Not Detected (Not Detect) ng/mL Ur Oxycodone Screen Not Detected (Not Detect) ng/mL Urine Methadone Screen Not Detected (Not Detect) ng/mL Urine Fentanyl Screen Not Detected (Not Detect) Ur Barbiturates Screen Not Detected (Not Detect) Ur Phencyclidine Scrn Not Detected (Not Detect) Ur Amphetamines Screen Not Detected (Not Detect) U Benzodiazepines Scrn Not Detected (Not Detect) Urine Cocaine Screen POSITIVE H (Not Detect) U Marijuana (THC) Screen Not Detected (Not Detect) Independent Interpretation I performed an independent interpretation of an: Plain X-Ray Radiology Impression Discussion of test interpretation with radiology: I have reviewed the radiologist's reading. Radiologist Impression: Right forearm: No fractures or erosive osseous lesions. Intact radial head. Soft tissue prominence along the dorsal aspect of the forearm. No soft tissue emphysematous changes. Right humerus: Focal soft tissue emphysematous changes and soft tissue prominence is present along the radial aspect of the arm adjacent to the distal one third of the humerus. The visualized right ribs and lung are normal in appearance. No erosive osseous lesions identified. No fractures noted. Procedures Abscess I/D Site: upper extremity Side (if applicable): right Local Anesthetic: lidocaine 1% and with epi Amount of anesthesia used (mL): 10 Technique: needle aspiration and ultrasound guided Amount of fluid expressed (mL): 20 Sent for culture/gram staining?: No Irrigation: No Packing used?: [email or web address] Critical Care Time Critical Care Time Critical Care Time: Yes Total Critical Care Time: 45 Attestation: I have personally provided critical care time. Time includes review of lab data, radiology results, discussion with consultants, and monitoring for potential decompensation. Intervention performed as documented. Discharge Plan Discharge Clinical Impression: Cellulitis and abscess of upper extremity Patient Disposition: Home, Self-Care Instructions: Cellulitis (ED), Abscess (ED), Incision and Drainage (ED) Additional Instructions: Your packing needs to be removed in 24-48 hours. Please follow-up with your primary care physician, return to the ED for wound check if your PCP can not see you within 48 hours. Please follow-up with your primary care physician tomorrow. If you have any worsening or new symptoms, please return to the emergency room or call 911 Prescriptions: New cephalexin 500 mg capsule 500 mg PO BID Qty: 20 0RF doxycycline hyclate 100 mg capsule 100 mg PO BID Qty: 20 0RF ibuprofen 600 mg tablet 600 mg PO QID PRN (Reason: fever or pain) Qty: 30 0RF No Action sulfacetamide sodium 10 % drops 1 drp ophthalmic (eye) Q4H Qty: 15 0RF Print Language: Amharic
[2023-09-16 14:55] LABS: MANUAL DIFF FLAG NO
[2023-09-16 14:57] LABS: Basophils Percent Auto 0.3 % (0-2); Eosinophils Absolute Auto 0.1 X10*3/uL (0.0-0.4); Eosinophils Percent Auto 1.1 % (0-4); Hematocrit 41.2 % (42.0-52.0); Hemoglobin 14.3 g/dl (14.0-18.0); Imm Gran Abs Auto 0.03 X10*3/uL (0.00-0.03); Imm Gran Pct Auto 0.3 % (0.0-0.4); Lymphocytes Absolute Auto 1.5 X10*3/uL (1.2-4.9); Lymphocytes Percent Auto 15.5 % (20-40); Mean Corpuscular HGB Conc 34.7 g/dl (31.0-36.0); Mean Corpuscular Hemoglobin 31.2 pg (27.0-33.0); Mean Platelet Volume 10.3 fL (9.4-12.4); Monocytes Percent Auto 10.4 % (2-11); Neutrophils Absolute Auto 7.1 x10*3/uL (2.0-8.3); Neutrophils Percent Auto 72.4 % (45-73); Platelet Count 248 X10*3/uL (160-400); Red Blood Count 4.58 X10*6/uL (4.60-5.80); Red Cell Distribution Width 12.3 % (11.0-16.0); White Blood Count 9.7 X10*3/uL (4.8-10.8)
[2023-09-16 15:06] LABS: Amphetamine Screen Urine Not Detected (Not Detect); Barbiturates, Urine Not Detected (Not Detect); Benzodiazepines Screen Urine Not Detected (Not Detect); Buprenorphine Scr Not Detected (Not Detect); Cannabinoid Screen Urine Not Detected (Not Detect); Cocaine Screen Urine POSITIVE (Not Detect); Fentanyl, urine Not Detected (Not Detect); Methadone Screen, Urine Not Detected (Not Detect); Opiate Screen Urine Not Detected (Not Detect); Oxycodone Screen Urine Not Detected (Not Detect); Phencyclidine Screen Urine Not Detected (Not Detect)
[2023-09-16 15:09] LABS: Lactic Acid 1.3 mmol/L (0.5-2.0)
[2023-09-16 15:15] LABS: Alanine Aminotransferase 36 U/L (0-40); Albumin Level 4.2 g/dL (3.5-5.0); Alkaline Phosphatase 74 U/L (39-117); Anion Gap 12 (12-20); Aspartate Amino Transferase 33 U/L (5-37); Bilirubin Total 0.3 mg/dL (0.0-1.0); Blood Urea Nitrogen 9 mg/dL (9-16); C Reactive Protein 7.71 mg/dL (< or = 0.50); Calcium 9.7 mg/dL (8.4-10.2); Carbon Dioxide 29 mmol/L (22-29); Chloride 103 mmol/L (96-108); Creatinine Clr Calc Pharmacy 123.9; Estimated Glomerular Filt Rate > 60; Glucose Random 99 mg/dL (60-115); Magnesium 2.3 mg/dL (1.6-2.6); Sodium 140 mmol/L (135-145); Total Protein 7.7 g/dL (6.5-8.0)
[2023-09-16 15:43] LABS: Erythrocyte Sedimentation Rate 53 MM/HR (0-15)
[2023-09-16 16:00] VITALS: BP 116/74; PULSE 82; RESP 15; TEMP 36.9; O2SAT 99
--- NOTE | 2023-09-16 16:00 | PC.NURSE ---
20gIV placed in the left AC - patent/intact.
[2023-09-16] MEDS: Doxycycline Monohydrate 100 MG CAPSULE PO (16:28)
[2023-09-16] MEDS: cefTRIAXone sodium 1 GM in 0.9 % Sodium Chloride 50 ML IV (16:28)
[2023-09-16] MEDS: Lidocaine HCl 1%/Epi 1:100,000 20 ML VIAL 30 ML INFILTRATI (16:29)
[2023-09-16] MEDS: Morphine Sulfate 2 MG/ML CARTRIDGE IVPUSH (16:29)
--- NOTE | 2023-09-16 16:30 | PC.NURSE ---
medication administered per provider order. effectiveness pending. provider/tech bedside setting up to drain abscess.
--- NOTE | 2023-09-16 17:07 | PC.NURSE ---
abscess drained. pt tolerated well.
[2023-09-16 18:05] VITALS: BP 119/77; PULSE 90; RESP 18; TEMP 37.1; O2SAT 99
[2023-09-16 18:27] VITALS: BP 119/77; PULSE 90; RESP 18; TEMP 37.1; O2SAT 99
== END 2023-09-16 18:32 | disposition home or self-care (01) ==
PROVIDERS: Physician Assistant Medical; Emergency Provider Emergency Medicine
DX: L02.413 Cutaneous abscess of right upper limb (principal); L03.113 Cellulitis of right upper limb; F19.90 Other psychoactive substance use, unspecified, uncomplicated; Z87.891 Personal history of nicotine dependence; Z79.899 Other long term (current) drug therapy
CPT/HCPCS: 10060; 36415; 73060; 73090; 80053; 80307; 83605; 83735; 85025; 85652; 86140; 87040; 96365; 96375; 99283; 99284; J0696; J2270